=== PATIENT | female | born 1950 | race Caucasian/White ===

== ENCOUNTER → 2017-04-07 | Outpatient (CLI) | payer OTHER ==
--- NOTE | 2017-04-07 11:07 | RAD ---
HISTORY: Left knee pain. Study: Three views of the left knee. Comparison: None available. Findings: Moderate to severe tricompartmental osteoarthritis. No acute fracture dislocation. No significant kn ee effusion. The soft tissue structures are otherwise unremarkable. IMPRESSION: Chronic findings as above. Reported By:
== END ==
LOC: RAD 10:35
PROVIDERS: ATTEND Specialist
DX: M25.562 Pain in left knee (principal)
CPT/HCPCS: 73564

== ENCOUNTER 2017-07-03 13:31 | Emergency (ER) | payer OTHER ==
[2017-07-03 13:41] VITALS: BP 113/66; BMI 37.7
--- NOTE | 2017-07-03 14:37 | DR.GENAD ---
HPI - PCP Primary Care Physician: GUY RICKETTS - Complaint/Symptoms Chief Complaint Doctors Comments: Patient admits to needing to surgery on her left knee. Chief Complaint:: PT STATES " I WAS COMING OUT OF THE BR LAST NIGHT AND I FELL AND I HURT IN MY RIGHT HIP AND BUTTOCKS AND WHEN I WALK I STUMBLE". RIGHT FOOT AND RIGHT TOE PAIN ". - Source History Provided: Patient - Mode of Arrival Mode of Arrival: Wheelchair - Timing Onset of Chief Complaint: 07/02/17 PMH - PMH Past Medical History: Yes Past Medical History: Diabetes, Hypertension Past Medical History Comment: LUPUS Past Surgical History: Yes Past Surgical History Comment: GALL BLADDER , AND KNEE . - Family History History of Family Medical Conditions: Yes Family Medical History: Diabetes Mellitus, Hypertension - Social History Does patient currently use any type of tobacco product: Yes Have you used tobacco products in the last 12 months: Yes Type of Tobacco Use: Cigarettes How many years tobacco product used: 45 Does any household member use tobacco: No Alcohol Use: None Do you use any recreational Drugs:: No Lives With: Alone Lives Where: Home - infectious screening In the last 2 months have you had wt loss of >10#?: NO Have you had fever, night sweats or hemotysis?: No Have you traveled outside the country in the last 6 months?: No Isolation: Standard ROS - Review of Systems Eyes: No Symptoms Reported ENTM: No Symptoms Reported Respiratoy: No Symptoms Reported Cardiovascular: No Symptoms Reported Gastrointestinal/Abdominal: No Symptoms Reported Genitourinary: No Symptoms Reported Neurological: No Symptoms Reported Musculoskeletal: No Symptoms Reported Integumentary: No Symptoms Reported Hematologic/Lymphatic: No Symptoms Reported Endocrine: No Symptoms Reported Psychiatric: No Symptoms Reported All Other Systems: Reviewed and Negative PE - Vital Signs Vitals: Temperature 97.7 F Pulse Rate 58 Respiratory Rate 20 Blood Pressure 113/66 O2 Sat by Pulse Oximetry 99 - General Limitations: No Limitations General Appearance: Alert, In No Apparent Distress - Head Head Exam: Normal Inspection, Atraumatic - Eyes Eye exam: Normal Appearance, PERRL, EOMI - ENT ENT Exam: Normal Exam External Ear Exam: Normal External Inspection TM/Canal Exam: Bilateral Normal Nose Exam: Normal Nose Exam Mouth Exam: Normal Inspection Throat Exam: Normal Inspection - Neck Neck Exam: Normal Inspection - Chest Chest Inspection: Normal Inspection - Respiratory Respiratory Exam: Normal Lung Sounds Bilat Respiratory Exam: Bilateral Clear to Auscultation - Cardiovascular Cardiovascular Exam: Regular Rate, Normal Rhythm - Abdominal Exam Abdominal Exam: Normal Inspection, Normal Bowel Sounds Abdominal Tenderness: negative: RUQ, RLQ, LUQ, LLQ, Epigastrium, Suprapubic, Diffuse, Mild, Moderate, Severe, Other - Extremities Extremities Exam: Normal Inspection, Full ROM - Back Back Exam: Normal Inspection - Neurologic Neurological Exam: Oriented X3, CN II-XII Intact - Psychiatric Psychiatric Exam: Normal Affect - Skin Skin Exam: Warm, Dry, Intact ROR - XRAY XRAY Interpreted by: Radiologist (Lumbar: Multilevel lumbar disc disease and facet arthropathy. No acute osseous abnormality identified. Right Foot: Nondisplaced oblique fracture through the distal 5th metarsal.) - Diagnosis Discharge Problem: Multilevel lumbar disease, nod displaced fracture 5th metatarsal - Discharge Plan Condition: Stable - Follow ups/Referrals Follow ups/Referrals: DAVID TOVAR [Primary Care Provider] - 3 days - Instructions
[2017-07-03] MEDS ORDERED: TORADOL 60 MG VIAL IM ONE (14:38)
[2017-07-03] MEDS ORDERED: TORADOL 60 MG VIAL ONE (15:09)
--- NOTE | 2017-07-03 15:18 | RAD ---
HISTORY: Pain lateral foot after fall Study: Three views right foot Comparison: None Findings: Normal alignment. There is an oblique nondisplaced fracture through the distal aspect of the 5th meta tarsal. The soft tissues are unremarkable. There are degenerative changes of the midfoot and mild ca lcaneal enthesopathy noted. IMPRESSION: 1. Nondisplaced oblique fracture through the distal 5th metatarsal. Reported By:
--- NOTE | 2017-07-03 15:19 | RAD ---
HISTORY: Status post fall, low back pain with radiculopathy Study: Three views lumbar spine Comparison: None Findings: Normal alignment of the lumbar spine is maintained. Vertebral body heights are preserved. Multileve l spondylosis is present with diffuse degenerative disc space narrowing at multiple levels and vacuum phenomenon at L5-S1. There are facet degenerative changes also seen in the lower lumbar spine withou t significant listhesis.No evidence for acute fracture or subluxation. Cholecystectomy clips are note d. The soft tissues are otherwise unremarkable. IMPRESSION: 1. Multilevel lumbar disc disease and facet arthropathy. No acute osseous abnormality identified. Reported By:
== END 2017-07-03 15:48 | disposition home or self-care (01) ==
LOC: ER 14:14
DX: S92.901A Unspecified fracture of right foot, initial encounter for closed fracture (principal); M51.36 Other intervertebral disc degeneration, lumbar region; W19.XXXA Unspecified fall, initial encounter; Y92.9 Unspecified place or not applicable
CPT/HCPCS: 72100; 73630; 96372; 99282; J1885

== ENCOUNTER → 2017-07-12 | Outpatient (CLI) | payer OTHER ==
[2017-07-03 13:41] VITALS: BP 113/66
--- NOTE | 2017-07-12 11:41 | RAD ---
HISTORY: Osteoarthritis, left knee pain Study: Four views left knee Comparison: 04/07/2017 Findings: Severe erosive tricompartmental osteoarthritic changes are present. There is proliferative enthesopat hy seen in the patellofemoral compartment. On the patellar sunrise view there is a new osteochondral lucency in the medial patellar facet suggesting a displaced osteochondral defect. No evidence of acut e fracture or dislocation. No joint effusion is seen. IMPRESSION: 1. Severe tricompartmental erosive osteoarthritic changes. 2. Osteochondral defect in the medial patellar facet. Reported By:
== END | disposition home or self-care (01) | DRG 554 ==
LOC: RAD 10:11
PROVIDERS: ATTEND Specialist
DX: M17.12 Unilateral primary osteoarthritis, left knee (principal); M21.862 Other specified acquired deformities of left lower leg
CPT/HCPCS: 73564